=== PATIENT | female | born 1990 | race American Indian/Alaskan Native ===

== ENCOUNTER 2016-09-26 18:06 | Emergency (ER) | payer MEDICAID ==
[2016-09-26 18:09] VITALS: TEMP 98
[2016-09-26] MEDS ORDERED: Lidocaine 1% Inj (20ml) INFIL ONE (19:08)
[2016-09-26] MEDS ORDERED: Bacitracin 500 Units/gm Oint Foilpak UD TOP ONE (19:09)
--- NOTE | 2016-09-26 19:14 | C.PDOC ---
History Of Present Illness 26 year old patient presents to the ED complaining of a laceration to the right thumb that occurred around 1 pm today from broken glass. The bleeding was controlled initially, but it started to bleed again. Patient denies fever, numbness, weakness, or tingling sensation. The last tetanus was in 2004. Time Seen by Provider: 09/26/16 18:56 Chief Complaint (Nursing): Abnormal Skin Integrity History Per: Patient History/Exam Limitations: no limitations Onset/Duration Of Symptoms: Hrs (1 pm) Current Symptoms Are (Timing): Still Present Quality Of Symptoms: Other (bleeding) Severity: Mild Pain Scale Rating Of: 3 Recent travel outside of the [place]: No Past Medical History Reviewed: Historical Data, Nursing Documentation, Vital Signs Vital Signs: Last Vital Signs Temp 98 F 09/26/16 18:08 Pulse 78 09/26/16 20:59 Resp 18 09/26/16 20:59 BP 128/72 09/26/16 20:59 Pulse Ox 98 09/26/16 20:59 Family History: States: Unknown Family Hx - Social History Hx Alcohol Use: Yes Hx Substance Use: No - Immunization History Hx Tetanus Toxoid Vaccination: No Hx Influenza Vaccination: Yes Hx Pneumococcal Vaccination: No Review Of Systems Except As Marked, All Systems Reviewed And Found Negative. Constitutional: Negative for: Fever Skin: Positive for: Other (2 cm laceration lateral right thumb) Neurological: Negative for: Weakness, Numbness Physical Exam - Physical Exam Appears: Non-toxic, No Acute Distress Skin: Warm, Dry Cardiovascular: Rhythm Regular Extremity: Normal ROM, Capillary Refill (<2 seconds), No Deformity, Other ( right thumb: shallow, "v" shaped laceration to the lateral aspect of the thumb ( +)normal ROM (+)sensation intact. no foreign body noted) Neurological/Psych: Oriented x3, Normal Speech, Normal Cognition, Normal Motor, Normal Sensation Gait: Steady ED Course And Treatment O2 Sat by Pulse Oximetry: 96 (RA) Pulse Ox Interpretation: Normal Laceration - Laceration Repair finger Wound Length (In cm): 2 cm Description Of Wound: Linear Wound Cleansed With: Betadine Anesthesia: Lidocaine 1% Wound Examination: Irrigated With Saline Wound Closure: Suture Suture Technique And Material Used: Running, Interrupted Wound Complexity: Simple Disposition Counseled Patient/Family Regarding: Diagnosis, Need For Followup - Disposition Disposition: HOME/ ROUTINE Disposition Time: 20:42 Condition: GOOD Additional Instructions: Keep wound clean and dry. change bandage daily., wash with soap and water. antionette; y bacitracin and re-bandage. Suture removal in 7-10 days. Tylenol or Motrin for pain Instructions: Care For Your Stitches (ED), Laceration (ED) Forms: General Discharge Instructions - Clinical Impression Clinical Impression: Laceration of finger - PA / DEPUTY GENERAL COUNSEL / Resident Statement MD/DO has reviewed & agrees with the documentation as recorded. - Scribe Statement The provider has reviewed the documentation as recorded by the Scribe Priya Flower All medical record entries made by the Scribe were at my direction and personally dictated by me. I have reviewed the chart and agree that the record accurately reflects my personal performance of the history, physical exam, medical decision making, and the department course for this patient. I have also personally directed, reviewed, and agree with the discharge instructions and disposition.
[2016-09-26] MEDS ORDERED: Bacitracin 500 Units/gm Oint Foilpak UD ONE (19:40)
[2016-09-26] MEDS ORDERED: Lidocaine 1% Inj (20ml) ONE (19:41)
[2016-09-26 21:00] VITALS: BP 128/72; PULSE 78; RESP 18
[2016-09-26 22:47] VITALS: O2SAT 96
== END 2016-09-26 21:01 | disposition home or self-care (01) ==
LOC: C.ER 18:06
DX: S61.011A Laceration without foreign body of right thumb without damage to nail, initial encounter (principal); W25.XXXA Contact with sharp glass, initial encounter

== ENCOUNTER 2017-02-13 18:28 | Emergency (ER) | payer MEDICAID ==
[2017-02-13 19:13] LABS: RBC URINE 1367 /hpf (0-3); URINE BACTERIA OCC (<OCC); URINE BILIRUBIN NEGATIVE (NEGATIVE); URINE BLOOD 3+ (NEGATIVE); URINE COLOR Yellow (YELLOW); URINE GLUCOSE (UA) NORMAL (Normal); URINE KETONE NEGATIVE (NEGATIVE); URINE LEUKOCYTE ESTERASE 3+ Leu/uL (Negative); URINE PROTEIN 2+ mg/dL (NEGATIVE); URINE UROBILINOGEN NORMAL mg/dL (0.2-1.0); WBC URINE 796 /hpf (0-5)
--- NOTE | 2017-02-13 19:20 | C.PDOC ---
History Of Present Illness Pt states that she had vaginal bleeding for 18 days, since she stopped taking her OCPs. She states that the bleeding stopped yesterday, but then she started having urinary symptoms. Time Seen by Provider: 02/13/17 18:45 Chief Complaint (Nursing): Female Genitourinary History Per: Patient Onset/Duration Of Symptoms: Days (1) Current Symptoms Are (Timing): Still Present Severity: Moderate Quality Of Discomfort: Cramping Associated Symptoms: Urinary Symptoms Alleviating Factors: None Additional History Per: Prior Records Past Medical History Reviewed: Historical Data, Nursing Documentation, Vital Signs Vital Signs: Last Vital Signs Temp 98.3 F 02/13/17 18:36 Pulse 82 02/13/17 18:36 Resp 18 02/13/17 18:36 BP 142/82 02/13/17 18:36 Pulse Ox 100 02/13/17 19:20 - Medical History PMH: No Chronic Diseases Surgical History: No Surg Hx Family History: States: Unknown Family Hx - Social History Hx Alcohol Use: Yes Hx Substance Use: No - Immunization History Hx Tetanus Toxoid Vaccination: No Hx Influenza Vaccination: Yes Hx Pneumococcal Vaccination: No Review Of Systems Except As Marked, All Systems Reviewed And Found Negative. Constitutional: Negative for: Fever, Weakness Cardiovascular: Negative for: Chest Pain, Light Headedness Respiratory: Negative for: Shortness of Breath Gastrointestinal: Negative for: Vomiting Genitourinary: Positive for: Dysuria, Frequency, Vaginal Bleeding (stopped yesterday) Musculoskeletal: Negative for: Neck Pain, Back Pain Skin: Negative for: Rash Neurological: Negative for: Weakness, Numbness, Seizures, Altered Mental Status Physical Exam - Physical Exam Appears: Non-toxic, No Acute Distress Skin: Normal Color, Warm, Dry, No Rash Head: Atraumatic, Normacephalic Eye(s): bilateral: Normal Inspection, PERRL, EOMI Oral Mucosa: Moist Neck: Normal ROM, Supple Cardiovascular: Rhythm Regular Respiratory: Normal Breath Sounds, No Accessory Muscle Use Gastrointestinal/Abdominal: Soft, Tenderness (suprapubic), No Guarding, No Rebound Back: No CVA Tenderness Extremity: Normal ROM Neurological/Psych: Oriented x3, Normal Motor, Normal Sensation ED Course And Treatment - Laboratory Results Lab Interpretation: Abnormal Interpretation Of Abnormal: UTI, urine C&S sent. Urine POC: Negative O2 Sat by Pulse Oximetry: 100 Pulse Ox Interpretation: Normal Disposition Counseled Patient/Family Regarding: Studies Performed, Diagnosis, Need For Followup, Rx Given - Disposition Referrals: Bria Purdy MD [Family Provider] - Disposition: HOME/ ROUTINE Disposition Time: 19:24 Condition: STABLE Additional Instructions: Drink plenty of fluids. Follow up with your doctor this week. Return to the ER if you develop fever, vomiting, back pain, worsening of symptoms or if you have any other concerns. Prescriptions: Ciprofloxacin [Cipro] 1 tab PO BID #10 tab Instructions: Urinary Tract Infection in Women (ED) Forms: [employer] (Y[place]i) - Clinical Impression Clinical Impression: UTI (urinary tract infection)
[2017-02-13] MEDS ORDERED: Naproxen 550 mg Tab PO STA (19:21)
[2017-02-13] MEDS ORDERED: Naproxen 550 mg Tab PO ONE (19:33)
[2017-02-13 19:56] VITALS: BP 119/85; PULSE 73; RESP 16; TEMP 98; O2SAT 100
== END 2017-02-13 19:59 | disposition home or self-care (01) ==
LOC: C.ER 18:28
DX: N39.0 Urinary tract infection, site not specified (principal)

== ENCOUNTER 2018-05-08 07:56 | Emergency (ER) | payer MEDICAID ==
[2018-05-08 08:10] VITALS: RESP 18
--- NOTE | 2018-05-08 09:20 | C.PDOC ---
History Of Present Illness 28 year old female with no medical history presents to the ED complaining of right flank pain that radiates to her suprapubic area for 4 days. Associated symptoms include decreased urinary output. Reports she had a recent gastric sle remi surgery in December 2017. Denies any headache, fever, chills, nausea, vomiting, diarrhea, dysuria, hematuria, or any other symptoms. Time Seen by Provider: 05/08/18 09:16 Chief Complaint (Nursing): Abdominal Pain History Per: Patient History/Exam Limitations: no limitations Onset/Duration Of Symptoms: Days (4) Current Symptoms Are (Timing): Still Present Location Of Pain/Discomfort: Suprapubic, Other (right flank ) Associated Symptoms: Urinary Symptoms (decreased urinary output ). denies: Feve r, Chills, Nausea, Vomiting, Diarrhea, Back Pain, Chest Pain Past Medical History Reviewed: Historical Data, Nursing Documentation, Vital Signs Vital Signs: Last Vital Signs Temp 98.8 F 05/08/18 08:06 Pulse 65 05/08/18 08:06 Resp 18 05/08/18 08:06 BP 145/87 05/08/18 08:06 Pulse Ox 100 05/08/18 08:06 - Medical History PMH: No Chronic Diseases Other Surgeries: Gastric Bypass Surgery Family History: States: Unknown Family Hx - Social History Hx Alcohol Use: No Hx Substance Use: No - Immunization History Hx Tetanus Toxoid Vaccination: Yes Hx Influenza Vaccination: Yes Hx Pneumococcal Vaccination: No Review Of Systems Except As Marked, All Systems Reviewed And Found Negative. Constitutional: Negative for: Fever, Chills Gastrointestinal: Positive for: Abdominal Pain (right flank pain radiating to suprapubic region ). Negative for: Nausea, Vomiting, Diarrhea Genitourinary: Positive for: Other (decreased urinary output). Negative for: Dysuria, Hematuria, Vaginal Discharge, Vaginal Bleeding Musculoskeletal: Negative for: Back Pain Physical Exam - Physical Exam Appears: Non-toxic, No Acute Distress Skin: Warm, Dry, No Rash Head: Normacephalic Eye(s): bilateral: Normal Inspection Nose: Normal Oral Mucosa: Moist Neck: Normal ROM, Supple Chest: Symmetrical Cardiovascular: Rhythm Regular Respiratory: No Rales, No Rhonchi, No Wheezing Gastrointestinal/Abdominal: Soft, Tenderness (mild suprapubic tenderness), No Guarding, No Rebound Back: No CVA Tenderness Extremity: Bilateral: Atraumatic, Normal Color And Temperature, Normal ROM Neurological/Psych: Oriented x3, Normal Speech Gait: Steady ED Course And Treatment - Laboratory Results Result Diagrams: 05/08/18 09:35 05/08/18 09:35 O2 Sat by Pulse Oximetry: 100 (RA) Pulse Ox Interpretation: Normal - CT Scan/US CT abd/pel Other Rad Studies (CT/US): Read By Radiologist, Radiology Report Reviewed CT/US Interpretation: Accession No. : [id number]. Patient Name / ID : ZONIA CORDOBA / [id number]. Exam Date : 05/08/2018 10:48:08 ( Approved ). Study Comment : Sex / Age : F / 28Y. Creator : Dyana Courtney. Dictator : Will Abreu MD. Oven Builder : Press Writer : Will Abreu MD. Approver2 : Report Date : 05/08/2018 11:24:58. My Comment : . Date of service: 05/08/2018. PROCEDURE: CT Abdomen and Pelvis. HISTORY: Abdominal pain. COMPARISON: No prior study available for comparison. TECHNIQUE: Contiguous axial images of the abdomen and pelvis performed without oral or intravenous contrast material. Additional 2D sagittal and coronal reformats generated. Radiation dose: Total exam DLP = 1227.44 mGy-cm. This CT exam was performed using one or more of the following dose reduction techniques: Automated exposure control, adjustment of the mA and/or kV according to patient size, and/or use of iterative reconstruction technique. FINDINGS: LOWER THORAX: Heart size within range of normal. No significant pericardial effusion.. Minor passive/dependent type atelectasis both posterior lower lung farmer. LIVER: Unremarkable. No gross lesion or ductal dilatation. GALLBLADDER AND BILE DUCTS: Gallbladder is appears partially distended. No evidence of intraluminal gallbladder calculi. PANCREAS: Unremarkable. No mass. No ductal dilatation. SPLEEN: Unremarkable. No splenomegaly. ADRENALS: No adrenal lesions. KIDNEYS AND URETERS: Kidneys demonstrate relatively symmetric size. No evidence of nephrolithiasis or hydronephrosis. BLADDER: Urinary bladder incompletely distended which in part accounts for thick-walled appearance. The possibility of a cystitis should be excluded with urinalysis. REPRODUCTIVE: Uterus appears grossly unremarkable. APPENDIX: Normal appendix best seen on axial series 3 image number [id number] and coronal sequence image number [id number].. BOWEL: Evaluation of the bowel is somewhat limited due to the lack of oral contrast material. Postoperative changes of gastric sleeve procedure.. The visualized loops of small bowel exhibit normal contour and caliber. No evidence of acute mechanical small bowel obstruction. Stool and air seen throughout the large bowel. No obvious mural wall thickening seen. PERITONEUM: Unremarkable. No fluid collection. No free air. LYMPH NODES: Unremarkable. No enlarged lymph nodes. VASCULATURE: Unremarkable. No aortic aneurysm. No aortic atherosclerotic calcification or mural plaque present. BONES: Multilevel degenerative spondylosis of the lower thoracic and lumbar spine. No acute compression fractures no retropulsed fragments. OTHER FINDINGS: None. IMPRESSION: Postoperative changes of gastric sleeve. No acute intra abdominal pathology. Medical Decision Making Medical Decision Making: Plan - CT abd/pel - Tylenol 975mg PO - Motrin 600mg PO - IV fluids - POC Patient feeling better, CT does not show stones. No pathology on CT. Plenty retained stool. No UTI. Disposition Counseled Patient/Family Regarding: Need For Followup, Rx Given - Disposition Disposition: HOME/ ROUTINE Disposition Time: 12:55 Condition: STABLE Additional Instructions: Take Miralax at night. Drink plenty water. Avoid rice and bread. Prescriptions: Polyethylene Glycol 3350 [Miralax] 17 gm PO DAILY PRN #30 packet PRN Reason: Constipation Instructions: Acute Abdomen (Belly Pain), Adult (DC) Forms: [facility] (E[place]ian), General Discharge Instructions, Work Excuse - POA Present On Arrival: None - Clinical Impression Clinical Impression: Abdominal pain, Constipation
[2018-05-08] MEDS ORDERED: Sodium Chloride 0.9% 1,000 ML IV ONE (09:21)
[2018-05-08 09:45] LABS: BASO % 0.4 % (0.0-2.0); EOS # 0.1 K/uL (0.0-0.7); EOS % 1.4 % (0.0-4.0); HEMOGLOBIN 12.1 g/dL (11.0-16.0); LYMPH # 2.6 K/uL (1.0-4.3); LYMPH % 46.5 % (20.0-40.0); MEAN CELL VOLUME 93.6 fL (81.0-99.0); MEAN CORPUSCULAR HEMOGLOBIN 31.7 pg (27.0-31.0); MEAN CORPUSCULAR HGB CONC 33.8 g/dL (33.0-37.0); MEAN PLATELET VOLUME 8.2 fL (7.2-11.7); MONO # 0.4 K/uL (0.0-0.8); MONO % 6.2 % (0.0-10.0); NEUT # 2.6 K/uL (1.8-7.0); NEUT % 45.5 % (50.0-75.0); RBC 3.83 Mil/uL (3.80-5.20); RED CELL DISTRIBUTION WIDTH 13.4 % (11.5-14.5); WHITE BLOOD COUNT 5.6 K/uL (4.8-10.8)
[2018-05-08 09:46] LABS: HCG,QUALITATIVE URINE NEGATIVE (NEGATIVE)
[2018-05-08 09:52] LABS: SQUAMOUS EPITHIAL 20 /hpf (0-5); URINE BACTERIA RARE (<OCC); URINE BILIRUBIN NEGATIVE (NEGATIVE); URINE BLOOD 1+ (NEGATIVE); URINE CLARITY Hazy (Clear); URINE COLOR Yellow (YELLOW); URINE GLUCOSE (UA) NORMAL (Normal); URINE LEUKOCYTE ESTERASE NEG Leu/uL (Negative); URINE PROTEIN NEGATIVE (NEGATIVE)
[2018-05-08 09:57] LABS: ALB/GLOB RATIO 1.3 (1.0-2.1); ALBUMIN 4.2 g/dL (3.5-5.0); ALT/SGPT 11 U/L (9-52); AST/SGOT 16 U/L (14-36); BLOOD UREA NITROGEN 11 mg/dL (7-17); CALCIUM 8.8 mg/dl (8.6-10.4); GFR NON-AFRICAN AMERICAN > 60
[2018-05-08 11:21] VITALS: BP 119/81; PULSE 57; TEMP 98.4
--- NOTE | 2018-05-08 12:29 | CT ---
Date of service: 05/08/2018 PROCEDURE: CT Abdomen and Pelvis. HISTORY: Abdominal pain COMPARISON: No prior study available for comparison. TECHNIQUE: Contiguous axial images of the abdomen and pelvis performed without oral or intravenous contrast material. Additional 2D sagittal and coronal reformats generated. Radiation dose: Total exam DLP = 1227.44 mGy-cm. This CT exam was performed using one or more of the following dose reduction techniques: Automated exposure control, adjustment of the mA and/or kV according to patient size, and/or use of iterative reconstruction technique. FINDINGS: LOWER THORAX: Heart size within range of normal. No significant pericardial effusion.. Minor passive/dependent type atelectasis both posterior lower lung farmer. LIVER: Unremarkable. No gross lesion or ductal dilatation. GALLBLADDER AND BILE DUCTS: Gallbladder is appears partially distended. No evidence of intraluminal gallbladder calculi. PANCREAS: Unremarkable. No mass. No ductal dilatation. SPLEEN: Unremarkable. No splenomegaly. ADRENALS: No adrenal lesions. KIDNEYS AND URETERS: Kidneys demonstrate relatively symmetric size. No evidence of nephrolithiasis or hydronephrosis. BLADDER: Urinary bladder incompletely distended which in part accounts for thick-walled appearance. The possibility of a cystitis should be excluded with urinalysis. REPRODUCTIVE: Uterus appears grossly unremarkable. APPENDIX: Normal appendix best seen on axial series 3 image number [id number] and coronal sequence image number [id number].. BOWEL: Evaluation of the bowel is somewhat limited due to the lack of oral contrast material. Postoperative changes of gastric sleeve procedure.. The visualized loops of small bowel exhibit normal contour and caliber. No evidence of acute mechanical small bowel obstruction. Stool and air seen throughout the large bowel. No obvious mural wall thickening seen. PERITONEUM: Unremarkable. No fluid collection. No free air. LYMPH NODES: Unremarkable. No enlarged lymph nodes. VASCULATURE: Unremarkable. No aortic aneurysm. No aortic atherosclerotic calcification or mural plaque present. BONES: Multilevel degenerative spondylosis of the lower thoracic and lumbar spine. No acute compression fractures no retropulsed fragments. OTHER FINDINGS: None. IMPRESSION: Postoperative changes of gastric sleeve. No acute intra abdominal pathology.
[2018-05-08 12:39] VITALS: O2SAT 100
== END 2018-05-08 13:03 | disposition home or self-care (01) ==
LOC: C.ER 07:56
DX: K59.00 Constipation, unspecified (principal); R10.9 Unspecified abdominal pain
CPT/HCPCS: 74176; 80053; 81001; 84703; 85025; 96360; 99284; J7030